=== PATIENT | male | born 1975 | race Caucasian/White ===

== ENCOUNTER 2018-01-26 10:46 | Emergency (ER) | payer OTHER ==
[~2018-01-26] VITALS: Ht 182.9 cm; Wt 83.9 kg
--- NOTE | 2018-01-26 11:06 | NUR ---
PT IS IN ROOM #2B. DR VELÁZQUEZ EVALUATED THE PT.
[2018-01-26] MEDS ORDERED: IBUPROFEN 600 MG TABLET PO ONE (11:15)
[2018-01-26] MEDS ORDERED: IBUPROFEN 600 MG TABLET ONE (11:18)
--- NOTE | 2018-01-26 12:19 | NUR ---
PT WAS D/C 'd DO HOME AFTER DR VELÁZQUEZ EVALUATION. D/C INSTRUCTIONS GIVEN TO THE PT.
[2018-01-26 12:21] VITALS: BP 126/72
== END 2018-01-26 12:22 | disposition home or self-care (01) ==
LOC: ER 10:46
DX: S60.222A Contusion of left hand, initial encounter (principal); S60.052A Contusion of left little finger without damage to nail, initial encounter; W22.8XXA Striking against or struck by other objects, initial encounter; Y93.89 Activity, other specified; Y92.89 Other specified places as the place of occurrence of the external cause; Y99.8 Other external cause status
CPT/HCPCS: 29130; 73130; 99284; A4663